=== PATIENT | male | born 1965 | race Caucasian/White ===

== ENCOUNTER 2020-07-30 10:49 | Emergency (ER) | payer OTHER ==
--- NOTE | 2020-07-30 11:34 | RAD REPORT ---
EXAM DESCRIPTION: RAD - Chest Single View - 07/30/2020 11:25 am CLINICAL HISTORY: COUGH, shortness of breath with exertion COMPARISON: Portable September 2016 TECHNIQUE: AP portable chest image was obtained 07/30/2020 11:25 am . FINDINGS: Lungs are clear. Lung volumes are reduced compared to the prior study which accentuates sl ightly the lung interstitial pattern. Heart and vasculature are normal. No measurable pleural effusio n and no pneumothorax. No acute bony abnormality seen. No acute aortic findings suspected. IMPRESSION: No acute cardiopulmonary process. No significant change from comparison study.
[2020-07-30] MEDS ORDERED: METHYLPREDNISOLONE 125 MG INJ ONE (11:48)
[2020-07-30 11:54] LABS: Basophils % 0.8 % (0-1.3); Hematocrit 47.3 % (39.6-49.0); Lymphocytes % 8.7 % (15.3-44.8); MPV 9.5 fL (7.6-11.3); RBC Red Blood Cell Count 5.94 M/uL (4.33-5.43)
[2020-07-30 12:07] LABS: Potassium 3.9 mmol/L (3.5-5.1)
--- NOTE | 2020-07-30 12:29 | ER ---
Nurse's Notes [facility] Name: Antoine Funes Age: 55 yrs Sex: Male : 1965 Arrival Date: 07/30/2020 Time: 10:51 Bed 20 Private MD: Diagnosis: Asthma;Pneumonia, unspecified organism Presentation: 07/30 11:02 Chief complaint: Patient states: Cough for 3 days. Notices SOB with exertion. No fever. ll1 Sent for CXR by clinic physician. Coronavirus screen: Client denies travel out of the [place] in the last 14 days. congestion, cough unrelated to allergies, Client presents with at least one sign or symptom that may indicate coronavirus-19. Standard/surgical mask placed on the client. Ebola Screen: Patient denies travel to an Ebola-affected area in the 21 days before illness onset. Initial Sepsis Screen: Does the patient meet any 2 criteria? HR > 90 bpm. No. Patient's initial sepsis screen is negative. Does the patient have a suspected source of infection? Yes: Productive cough/pneumonia. Risk Assessment: Do you want to hurt yourself or someone else? Patient reports no desire to harm self or others. Onset of symptoms was July 28, 2020. 11:02 Method Of Arrival: Ambulatory [facility] 11:02 Acuity: CALI 3 ll1 Triage Assessment: 11:05 General: Appears in no apparent distress. Behavior is calm, cooperative. Respiratory: ll1 Reports shortness of breath on exertion cough that is Airway is patent Trachea midline Respiratory effort is even, unlabored, Respiratory pattern is regular, symmetrical. Historical: - Allergies: 11:04 No Known Allergies; ll1 - PMHx: 11:04 Diabetes - NIDDM; High Cholesterol; Hypertension; Asthma; ll1 - PSHx: 11:04 None; ll1 - Immunization history:: Flu vaccine is up to date. - Social history:: Smoking status: Patient denies any tobacco usage or history of. - Family history:: not pertinent. - Hospitalizations: : No recent hospitalization is reported. Screenin:04 Abuse screen: Denies threats or abuse. Nutritional screening: No deficits noted. ll1 Tuberculosis screening: No symptoms or risk factors identified. Fall Risk IV access (20 points). Total Maynard Fall Scale indicates No Risk (0-24 pts). Assessment: 11:05 Pain: Denies pain. Neuro: No deficits noted. Cardiovascular: No deficits noted. Rhythm ll1 is sinus tachycardia. Respiratory: Airway is patent Trachea midline Respiratory effort is even, unlabored, Respiratory pattern is regular, symmetrical, Sputum is thick, clear Onset: The symptoms/episode began/occurred 3 days ago, the patient has mild shortness of breath. GI: No deficits noted. 12:10 Reassessment: Patient appears in no apparent distress at this time. No changes from jl7 previously documented assessment. Patient and/or family updated on plan of care and expected duration. Pain level reassessed. Patient is alert, oriented x 3, equal unlabored respirations, skin warm/dry/pink. Respiratory: Breath sounds with wheezes in left posterior lower lobe. 12:35 Reassessment: No changes from previously documented assessment. Patient and/or family ll1 updated on plan of care and expected duration. Pain level reassessed. Vital Signs: 11:02 BP 206 / 92; Pulse 96; Resp 18; Temp 98.7; Pulse Ox 92% on R/A; Weight 105.23 kg; ll1 Height 5 ft. 10 in. (177.80 cm); Pain 0/10; 11:30 BP 142 / 99; Pulse 99; Resp 19; Pulse Ox 93% ; jl7 12:39 BP 154 / 92; Pulse 84; Resp 18; Pulse Ox 94% on R/A; Pain 0/10; ll1 11:02 Body Mass Index 33.29 (105.23 kg, 177.80 cm) ll1 ED Course: 10:35 Inserted saline lock: 20 gauge in left antecubital area, using aseptic technique. Blood ll1 collected. 10:51 Patient arrived in ED. rg4 10:55 Oumar Jane MD is Attending Physician. rn 11:02 Mauri Johnson, RN is Primary Nurse. ll1 11:04 Triage completed. ll1 11:04 Arm band placed on Patient placed in an exam room, on a stretcher. ll1 11:25 XRAY CXR (1 view) In Process Unspecified. EDMS 12:09 Primary Nurse role handed off by Mauri Johnson, RN jl7 12:09 Shellie Leahy, YANELI is Primary Nurse. jl7 12:09 Patient has correct armband on for positive identification. Bed in low position. Call ll1 light in reach. Side rails up X 1. Pulse ox on. NIBP on. 12:39 No provider procedures requiring assistance completed. IV discontinued, intact, ll1 bleeding controlled, No redness/swelling at site. Pressure dressing applied. Patient maintains SpO2 saturation greater than 95% on room air. Administered Medications: 11:42 Drug: SOLU-Medrol 125 mg Route: IVP; Site: left antecubital; jl7 12:40 Follow up: Response: No adverse reaction; RASS: Alert and Calm (0) ll1 Outcome: 12:29 Discharge ordered by . rn 12:39 Discharged to home ambulatory. ll1 12:39 Condition: stable 12:39 Discharge instructions given to patient, Instructed on discharge instructions, follow up and referral plans. medication usage, Demonstrated understanding of instructions, follow-up care, medications, Prescriptions given X 3. 12:41 Patient left the ED. ll1 Addendum: 08/01/2020 10:37 Addendum: COVID-19 Result: Negative result given to RN to notify pt. Notified pt of i w negative COVID 19 swab results. Pt advised that even with a negative test result they should remain in isolation until symptom free for 3 days without medication. Pt also advised to return to the ED for worsening symptoms. Signatures: Dispatcher [employer] EDMS Jayla Whitney, RN Oumar Díaz MD MD rn Garcia, Rubi rg4 Shellie Leahy RN RN jl7 Mauri Johnson RN RN ll1
--- NOTE | 2020-07-30 12:29 | EDPHYS ---
Physician Documentation [facility] Name: Antoine Funes Age: 55 yrs Sex: Male : 1965 Arrival Date: 07/30/2020 Time: 10:51 Bed 20 Private MD: ED Physician Oumar Jane HPI: 07/30 11:12 This 55 yrs old Male presents to ER via Ambulatory with complaints of rn Shortness Of Breath, Cough. 11:12 The patient has shortness of breath with light activity. Onset: The symptoms/episode rn began/occurred 3 day(s) ago. Duration: The symptoms are intermittent. The patient's shortness of breath is aggravated by exertion, light activity, is alleviated by nothing. Severity of symptoms: At their worst the symptoms were moderate. The patient has not experienced similar symptoms in the past. The patient has been recently seen by a physician:. Reports seen today at clinic, xray obtained, showed pneumonia, sent here for further evaluation. Reports hx of asthma, mild sob with exertion, + productive cough.. Historical: - Allergies: 11:04 No Known Allergies; ll1 - PMHx: 11:04 Diabetes - NIDDM; High Cholesterol; Hypertension; Asthma; ll1 - PSHx: 11:04 None; ll1 - Immunization history:: Flu vaccine is up to date. - Social history:: Smoking status: Patient denies any tobacco usage or history of. - Family history:: not pertinent. - Hospitalizations: : No recent hospitalization is reported. ROS: 11:12 Constitutional: Negative for fever, chills, and weight loss, Eyes: Negative for injury, rn pain, redness, and discharge, Neck: Negative for injury, pain, and swelling, Cardiovascular: Negative for chest pain, palpitations, and edema, Respiratory: Negative for wheezing, and pleuritic chest pain Abdomen/GI: Negative for abdominal pain, nausea, vomiting, diarrhea, and constipation, MS/Extremity: Negative for injury and deformity, Skin: Negative for injury, rash, and discoloration, Neuro: Negative for headache, weakness, numbness, tingling, and seizure. Exam: 11:12 Constitutional: This is a well developed, well nourished patient who is awake, alert, rn and in no acute distress. Head/Face: Normocephalic, atraumatic. ENT: no Stridor Cardiovascular: Regular rate and rhythm. No pulse deficits. Respiratory: Speaking full sentences. No increased work of breathing, no retractions or nasal flaring. Skin: Warm, dry MS/ Extremity: Pulses equal, no cyanosis. Neuro: Awake and alert, GCS 15 Vital Signs: 11:02 BP 206 / 92; Pulse 96; Resp 18; Temp 98.7; Pulse Ox 92% on R/A; Weight 105.23 kg; ll1 Height 5 ft. 10 in. (177.80 cm); Pain 0/10; 11:30 BP 142 / 99; Pulse 99; Resp 19; Pulse Ox 93% ; jl7 12:39 BP 154 / 92; Pulse 84; Resp 18; Pulse Ox 94% on R/A; Pain 0/10; ll1 11:02 Body Mass Index 33.29 (105.23 kg, 177.80 cm) ll1 MDM: 10:55 Patient medically screened. rn 12:26 Differential diagnosis: Bronchitis pneumonia, Pneumothorax pulmonary edema. Data rn reviewed: vital signs, nurses notes, lab test result(s), radiologic studies, plain films, and as a result, I will discharge patient. Counseling: I had a detailed discussion with the patient and/or guardian regarding: the historical points, exam findings, and any diagnostic results supporting the discharge/admit diagnosis, lab results, radiology results, the need for outpatient follow up, to return to the emergency department if symptoms worsen or persist or if there are any questions or concerns that arise at home. Special discussion: I discussed with the patient/guardian in detail that at this point there is no indication for admission to the hospital. It is understood, however, that if the symptoms persist or worsen the patient needs to return immediately for re-evaluation. ED course: CXR without pneumonia here, CXR at outside facility read pneumonia, neg flu, oxygen a little low, + asthma, will dc home with abx, steroids, and to await covid result. . 07/30 11:03 Order name: Blood Culture Adult (2) rn 07/30 11:03 Order name: BMP; Complete Time: 12:25 rn 07/30 11:03 Order name: CBC with Diff; Complete Time: 12:25 rn 07/30 11:03 Order name: COVID-19 rn 07/30 11:03 Order name: Flu; Complete Time: 12:25 rn 07/30 11:04 Order name: Procalcitonin rn 07/30 11:03 Order name: XRAY CXR (1 view); Complete Time: 11:35 rn 07/30 11:03 Order name: EKG; Complete Time: 11: rn 07/30 11:03 Order name: Cardiac monitoring; Complete Time: 12: rn 07/30 11:03 Order name: EKG - Nurse/Tech; Complete Time: 12: rn 07/30 11:03 Order name: IV Saline Lock; Complete Time: 11: rn 07/30 11:03 Order name: Labs collected and sent; Complete Time: : rn 07/30 11:04 Order name: Ferritin; Complete Time: : rn 07/30 11:03 Order name: O2 Per Protocol; Complete Time: : rn 07/30 11:03 Order name: O2 Sat Monitoring; Complete Time: 11: rn Administered Medications: 11:42 Drug: SOLU-Medrol 125 mg Route: IVP; Site: left antecubital; jl7 12:40 Follow up: Response: No adverse reaction; RASS: Alert and Calm (0) ll1 Disposition: 07/30/20 12:29 Discharged to Home. Impression: Asthma, Pneumonia, unspecified organism. - Condition is Stable. - Discharge Instructions: Community-Acquired Pneumonia, Adult, Asthma, Acute Bronchospasm. - Prescriptions for Prednisone 20 mg Oral Tablet - take 3 tablet by ORAL route once daily for 5 days; 15 tablet. Zithromax Z- Eugenio 250 mg Oral Tablet - take 1 tablet by ORAL route as directed for 5 days Day 1 - take two (2) tablets one time. Day 2, 3, 4 , 5 take one (1) tablet once daily.; 6 tablet. Albuterol Sulfate 90 mcg/actuation - inhale 1-2 puff by INHALATION route every 4-6 hours; 1 Inhaler. - Medication Reconciliation Form, Thank You Letter, Antibiotic Education, Prescription Opioid Use form. - Follow up: Private Physician; When: As needed; Reason: Recheck today's complaints, Re-evaluation by your physician. - Problem is new. - Symptoms have improved. Signatures: Dispatcher [employer] EDMS Oumar Jane MD MD rn Leal, Jahala, RN RN jl7 Mauri Johnson RN RN ll1 Corrections: (The following items were deleted from the chart) 12:41 12:29 07/30/2020 12:29 Discharged to Home. Impression: Asthma; Pneumonia, unspecified ll1 organism. Condition is Stable. Forms are Medication Reconciliation Form, Thank You Letter, Antibiotic Education, Prescription Opioid Use. Follow up: Private Physician; When: As needed; Reason: Recheck today's complaints, Re-evaluation by your physician. Problem is new. Symptoms have improved. rn
[2020-07-30 12:45] VITALS: TEMP 98.7
[2020-07-30 12:48] VITALS: BP 154/92; O2SAT 94
--- NOTE | 2020-08-02 16:18 | EKG ---
Test Date: 2020-07-30 Test Time: 12:00:09 Entry Level Automotive Technician: KATHREINE MEASUREMENT RESULTS: Intervals: Rate: 91 WA: 126 QRSD: 84 QT: 350 QTc: 430 [place]: P: -5 WA: 126 QRS: -24 T: -39 INTERPRETIVE STATEMENTS: Normal sinus rhythm Minimal voltage criteria for LVH, may be normal variant Nonspecific ST and T wave abnormality Abnormal ECG Compared to ECG 10/30/2016 03:32:22 Left ventricular hypertrophy now present ST (T wave) deviation now present Electronically Signed On 08-02-20 16:10:22 INSPECTOR SOLDERING by Mustapha Garza
== END 2020-07-30 12:41 | disposition home or self-care (01) ==
LOC: ER 10:49
DX: J18.9 Pneumonia, unspecified organism (principal); Z20.828 Contact with and (suspected) exposure to other viral communicable diseases; J45.909 Unspecified asthma, uncomplicated; I10 Essential (primary) hypertension
CPT/HCPCS: 93005; 87040 ×2; 85025; 80048; 36415; 82728; 84145; 87804 ×2; 71045; 96374; 99285; U0002; J2930

== ENCOUNTER 2022-03-17 07:14 | Day surgery (SDC) | payer BC, SELFPAY ==
[2022-03-12 15:46] LABS: SARS-CoV-2 Antigen Rapid Res Negative (Negative)
[2022-03-17] MEDS ORDERED: NA CHLORIDE 0.9% 1,000 ML ONE (07:35)
[2022-03-17] MEDS ORDERED: LIDOCAINE 1% MPF 5 ML VIAL ONE (08:53)
[2022-03-17] MEDS ORDERED: propofoL 200 MG/20 ML VIAL IV ONE (08:53)
[2022-03-17 11:43] VITALS: TEMP 97.2
[2022-03-17 11:44] VITALS: BP 133/70
[2022-03-17 11:48] VITALS: O2SAT 99
--- NOTE | 2022-03-17 16:10 | OP ---
Surgeon: Donavon White MD Procedure Performed: Esophagogastroduodenoscopy. Indication For Procedures: Colon cancer screening. Plan For Anesthesia: Monitored anesthesia care. Complexity: Average. Technique: After obtaining informed consent from the patient, explaining risks and complications, wh ich include, but are not limited to bleeding, infection, perforation, and anesthesia complication. T he patient was placed in the left lateral position and sedation was given. From then on, a digital r ectal exam was performed, which was negative. The scope was advanced to the rectum and carefully andrés ded up till the cecum. The cecum was identified by the ileocecal valve and appendiceal orifice. Sub sequently, scope gradually withdrawn while carefully examining the mucosa. After completion of proce dure, scope and equipment were withdrawn and procedure terminated in a safe manner. Scope withdrawal time was 12 minutes. Quality of prep was good. Findings: A 4 mm sessile polyp was seen in the transverse colon and removed with hot biopsy polypect patsy. In the descending colon, patchy area of pigmented mucosa was seen. Cold biopsies taken. In th e sigmoid colon, a 6 mm sessile polyp was seen. This was removed by hot biopsy polypectomy. Retrofl exion revealed grade 1 internal hemorrhoids. Complications: None. Tolerance To Anesthesia: Excellent. Postoperative Diagnosis: Colon polyps, abnormal descending colon mucosa, status post biopsy. Plan: 1.Await pathology results. 2.Follow up in the GI clinic in 2 weeks. 3.Repeat colonoscopy in 3-5 years based on pathology. US/MODL Voice ID: [id number] Report ID: [id number]
== END 2022-03-17 09:42 | disposition home or self-care (01) ==
LOC: OR 07:14
PROVIDERS: ATTEND Internal Medicine Gastroenterology
PROC: 0DBL8ZX Excision of Transverse Colon, Via Natural or Artificial Opening Endoscopic, Diagnostic (ICD-10-PCS; 2022-03-17)
PROC: 0DBN8ZX Excision of Sigmoid Colon, Via Natural or Artificial Opening Endoscopic, Diagnostic (ICD-10-PCS; 2022-03-17)
PROC: 0DBM8ZX Excision of Descending Colon, Via Natural or Artificial Opening Endoscopic, Diagnostic (ICD-10-PCS; principal; 2022-03-17 08:30)
DX: Z12.11 Encounter for screening for malignant neoplasm of colon (principal); D12.5 Benign neoplasm of sigmoid colon; R10.10 Upper abdominal pain, unspecified; K21.9 Gastro-esophageal reflux disease without esophagitis; E11.9 Type 2 diabetes mellitus without complications; I10 Essential (primary) hypertension; E66.9 Obesity, unspecified; E78.00 Pure hypercholesterolemia, unspecified; K30 Functional dyspepsia; K64.8 Other hemorrhoids; Z20.822 Contact with and (suspected) exposure to COVID-19
CPT/HCPCS: 36415; 82947; 88305; 87811; 45384; 45380; J2704; J7030

== ENCOUNTER 2022-03-25 13:29 | Observation (INO) | payer BC ==
--- OUTSIDE RECORDS SUMMARY | 2022-03-25 13:42 | XMS REPORT | Continuity of Care Document ---
:1965 Author Organization [facility] t Address [address] [place] [address] [address]. Hern[address]dez [address] [place] [address] Care Team Providers Name Role Phone Javon Stone Attending Clinician Unavailable Problems This patient has no known problems. Allergies, Adverse Reactions, Alerts This patient has no known allergies or adverse reactions. Medications This patient has no known medications. Procedures This patient has no known procedures. Encounters Start End Encounter Admission Attending Care Care Encounter Source Date/Time Date/Time Type Type Clinicians Facility Department ID 2022-03-[address] [facility] [id number] Common 09:25:03 Javon [address] [facility] 2022-03-[address] [facility] [id number] Common 13:44:02 Javon [facility] Results This patient has no known results.
[2022-03-25 14:52] VITALS: BMI 32.0
[2022-03-25 16:40] LABS: Urine Bilirubin Negative (Negative); Urine Blood Negative (Negative); Urine Clarity Clear (Clear); Urine Color Yellow (Yellow); Urine Glucose 3+ (Negative); Urine Protein Negative (Negative)
--- NOTE | 2022-03-25 17:58 | P.HP ---
Certification for Inpatient Patient admitted to: Inpatient With expected LOS: >2 Midnights Practitioner: I am a practitioner with admitting privileges, knowledge of patient current condition, hospital course, and medical plan of care. Services: Services provided to patient in accordance with Admission requirements found in Title 42 Section 412.3 of the Code of Federal Regulations Patient History Date of Service: 03/25/22 Reason for admission: FOOT INFECTION. History of Present Illness: SALEEM IS A DIABETIC WHOSE DIET IS NOT THE BEST AND A1C HAS BEEN BETWEEN 7 AND 8. HE HAS SOME COWS. COW STEPPED ON HIS TOE AND GOT INFECTION. HE CAME TO [facility]OUND CENTER BUT I SUGGESTED INPATIENT DEBRIDMENT TOE HAS THE NAIL COMING OFF AND HAS PUS BENEATH. MRI PENDING. Allergies shrimp Allergy (Verified 03/12/22 13:00) Itching Home medications list reviewed: Yes Home Medications: Amlodipine Besylate 5 mg PO DAILY 03/12/22 Dulaglutide [Trulicity] 4.5 mg SQ EVERY 7TH DAY 03/12/22 Empagliflozin/Metformin HCl [Synjardy Xr 25-1,000 mg Tablet] 1 each PO DAILY 03/12/22 Insulin Glargine,Hum.rec.anlog [Toujeo Solostar] 120 unit SQ DAILY 03/12/22 Losartan/Hydrochlorothiazide [Losartan-Hctz 100-12.5 mg Tab] 1 each PO DAILY 03/12/22 Rosuvastatin [Crestor] 10 mg PO DAILY 03/12/22 Pantoprazole [Protonix Tab*] 40 mg PO [id number] 03/25/22 - Past Medical/Surgical History Has patient received pneumonia vaccine in the past: No Diabetic: Yes -: colonoscopy -: DM -: HTN - Social History Smoking Status: Never smoker Alcohol use: Yes CD- Drugs: No Place of Residence: Home Review of Systems 10-point ROS is otherwise unremarkable Physical Examination - Vital Signs Temperature: 98.5 F Blood Pressure: 142/70 Pulse: 59 Respirations: 16 Pulse Ox (%): 98 - Physical Exam General: Oriented x3, Mild distress HEENT: Atraumatic, PERRLA, Mucous membr. moist/pink, EOMI, Sclerae nonicteric Neck: Supple, 2+ carotid pulse no bruit, No LAD, Without JVD or thyroid abnormality Respiratory: Clear to auscultation bilaterally, Normal air movement Cardiovascular: Regular rate/rhythm, Normal S1 S2 Gastrointestinal: Normal bowel sounds, No tenderness Musculoskeletal: No tenderness Integumentary: No rashes, Diabetic ulcer (L GREAT TOE CELLULITIS, RULE OUT PREG ANGRENE, RULE OUT OM. PUS BENEATH THE NAIL.) Neurological: Normal gait, Normal speech, Normal strength at 5/5 x4 extr, Normal tone, Normal affect Lymphatics: No axilla or inguinal lymphadenopathy Assessment and Plan - Problems (Diagnosis) (1) Diabetic ulcer of left great toe Current Visit: No Status: Acute Plan: IV VANCOMYCIN. DEBRIDE MRI TOE DURATION OF ANTIBIOTIC WILL DEPEND ON MRI. R TOE HAS MILD INFECTION THAT IS ALREADY BETTER ON BACTRIM I GAVE HIM LAST WEEK. DOPPLER BOTH LEGS. CHECK A1C. - Advance Directives Does patient have a Living Will: No Does patient have a Durable POA for Healthcare: No
[2022-03-26 02:40] VITALS: O2SAT 97
[2022-03-26] MEDS ORDERED: PANTOPRAZOLE 40MG TABLET PO SCH (06:00)
[2022-03-26] MEDS ORDERED: ONDANSETRON 4 MG/2 ML VIAL IV PRN (07:34)
[2022-03-26] MEDS ORDERED: HYDROMORPHONE HCL 1 MG/ML INJ IV PRN (07:34)
[2022-03-26] MEDS ORDERED: KETOROLAC 30 MG/ML INJ IV PRN (07:35)
[2022-03-26] MEDS ORDERED: DIPHENHYDRAMINE 25 MG TAB/CAP PO PRN (07:36)
[2022-03-26] MEDS ORDERED: ACETAMINOPHEN 325 MG TABLET PO PRN (07:37)
--- NOTE | 2022-03-26 07:51 | RAD REPORT ---
EXAM DESCRIPTION: US - Lower Extremity Arterial Bilat - 03/26/2022 5:21 am CLINICAL HISTORY: PVD COMPARISON: None. TECHNIQUE: Doppler evaluation of the bilateral lower extremity arterial tree performed. Waveforms an d velocity values were obtained along the length of each lower extremity. Visual inspection of the lo wer extremity arterial tree performed. FINDINGS: Triphasic waveform observed along the entire length of the right lower extremity. The left common femoral artery waveform pattern was biphasic with the remaining left lower extremity arterial tree demonstrating triphasic waveforms. Atherosclerotic changes are seen along the rivas of the bilateral lower extremity arterial tree. Ther e is no occlusion or focal flow restricting lesion identified. No suspicious velocity value or wavefo rm pattern. IMPRESSION: Mild bilateral lower extremity peripheral vascular disease. No occlusion or focal flow r estricting lesion identified.
[2022-03-26 08:21] LABS: Potassium 4.1 mmol/L (3.5-5.1)
[2022-03-26] MEDS ORDERED: VANCOMYCIN 2 GM in NA CHLORIDE 0.9% 500 ML IVPB ONE (08:30)
[2022-03-26] MEDS ORDERED: HOME MED 1 EA UNK (Insulin Glargine,Hum.Rec.Anlog [Toujeo Solostar] 300 UNIT/ML Insuln.Pen SQ SCH (09:00)
[2022-03-26] MEDS ORDERED: EMPAGLIFLOZIN PO SCH (09:00)
[2022-03-26] MEDS ORDERED: [UNRECOGNIZED DRUG - OTHER] PO SCH (09:00)
[2022-03-26] MEDS ORDERED: METFORMIN HCL PO SCH (09:00)
[2022-03-26] MEDS ORDERED: ROSUVASTATIN 10 MG TAB PO SCH (09:00)
[2022-03-26] MEDS ORDERED: LOSARTAN/HCTZ 50-12.5 PO SCH (09:00)
[2022-03-26] MEDS ORDERED: INSULIN GLARGINE 100 UNIT/ML SQ SCH (09:00)
[2022-03-26] MEDS ORDERED: LOSARTAN POTASSIUM 50 MG TABLET PO SCH (09:00)
[2022-03-26] MEDS ORDERED: AMLODIPINE 5 MG TAB PO SCH (09:00)
[2022-03-26] MEDS ORDERED: HOME MED 1 EA UNK (Losartan/Hydrochlorothiazide [Losartan-Hctz 100-12.5 Mg Tab] 1 EACH Tab PO SCH (09:00)
[2022-03-26] MEDS ORDERED: D50W 25 GM/50 ML SYRINGE IV PRN (11:15)
[2022-03-26] MEDS ORDERED: GLUCAGON 1 MG/VIAL IM PRN (11:15)
[2022-03-26] MEDS ORDERED: DEXTROSE 10%-WATER 125 ML IV PRN (11:20)
[2022-03-26] MEDS ORDERED: INSULIN -REGULAR HUMAN 50 UNIT/0.5 ML ML SQ SCH (11:30)
--- NOTE | 2022-03-26 12:50 | RAD REPORT ---
EXAM DESCRIPTION: MRI - Foot Left Wo Cont - 03/26/2022 12:39 pm CLINICAL HISTORY: Foot pain and swelling COMPARISON: None TECHNIQUE: Axial, sagittal and coronal magnetic resonance imaging left foot FINDINGS: No significant abnormal signal within the bones. No large joint effusion. No abscess Significant edema within the subcutaneous tissues is not present. IMPRESSION: No evidence of osteomyelitis
[2022-03-26 12:51] VITALS: BP 133/63; TEMP 97.9
--- NOTE | 2022-03-26 16:54 | P.DS ---
Admission Date: 03/25/22 Discharge Date: 03/26/22 Disposition: DC HOME/HOME HEALTH CARE Reason for Admission: FOOT INFECTION. - Problems (1) Diabetic ulcer of left great toe Status: Acute Brief History of Present Illness: SALEEM IS A DIABETIC WHOSE DIET IS NOT THE BEST AND A1C HAS BEEN BETWEEN 7 AND 8. HE HAS SOME COWS. COW STEPPED ON HIS TOE AND GOT INFECTION. HE CAME TO WOUND CENTER BUT I SUGGESTED INPATIENT DEBRIDMENT TOE HAS THE NAIL COMING OFF AND HAS PUS BENEATH. MRI PENDING. Hospital Course: SALEEM HAS DIABETES AND HIS COW STEPPED ON HIS TOE, NAIL ALMOST CAME OFF, HEHAS CELLULITIS AND NEED IV ABX, MRI AND DEBRIEMENT. ALL WERE CARRIED OUT TODAY. HE IS STABLE FOR HOME. HE HAS ORAL ABX HE WILL CONTINUE. MRI IS NEG FOR OM AND HE HAS MILD PVD ON SONOGRAM. Vital Signs/Physical Exam: Temp Pulse Resp BP Pulse Ox 97.9 F 57 18 133/63 97 03/26/22 12:00 03/26/22 12:00 03/26/22 12:00 03/26/22 12:00 03/26/22 12:00 Laboratory Data at Discharge: Sodium 139 mmol/L (136-145) 03/26/22 08:00 Potassium 4.1 mmol/L (3.5-5.1) 03/26/22 08:00 BUN 22 mg/dL (7-18) H 03/26/22 08:00 Creatinine 1.07 mg/dL (0.55-1.3) 03/26/22 08:00 Glucose 99 mg/dL (74-106) 03/26/22 08:00 Home Medications: Amlodipine Besylate 5 mg PO DAILY 03/12/22 Dulaglutide [Trulicity] 4.5 mg SQ EVERY 7TH DAY 03/12/22 Empagliflozin/Metformin HCl [Synjardy Xr 25-1,000 mg Tablet] 1 each PO DAILY 03/12/22 Insulin Glargine,Hum.rec.anlog [Vish Reed] 120 unit SQ DAILY 03/12/22 Losartan/Hydrochlorothiazide [Losartan-Hctz 100-12.5 mg Tab] 1 each PO DAILY 03/12/22 Rosuvastatin [Crestor] 10 mg PO DAILY 03/12/22 Pantoprazole [Protonix Tab*] 40 mg PO [id number] 03/25/22
--- NOTE | 2022-03-26 19:08 | CON ---
Date of Consultation: 03/26/2022 Reason For Consultation: Infected left great toe. History Of Present Illness: The patient is a 57-year-old gentleman, who sustained an injury to the l eft great toe when a cow stepped on his foot while he was wearing sneakers and then he had a toenail that was loose and he came to see Dr. Stone [facility], but the patient is a diabetic and th ere was cellulitis present already and the patient needed debridement and needed to be ruled out for osteomyelitis. The patient states that he has neuropathy. There is not much pain. No fever or chil ls. No sore throat, runny nose, cough, headaches, or dizziness. No chest pain. Review of Systems: Otherwise unremarkable. Past Medical History: Diabetes, hypertension. Past Surgical History: Colonoscopy. Allergies: NO ALLERGIES. Social History: The patient does not smoke and does not drink. Family History: Noncontributory. Physical Examination: Vital Signs: Stable. He is afebrile. General: He is awake, alert, and oriented x3. Head and Neck: No masses. Chest: Clear. Heart: S1, S2. Abdomen: Soft. Extremity: Neurovascularly intact. Neuro: Nonfocal. Lower extremities, dorsalis pedis and posterior tibial are slightly diminished. O n the left great toe, the nail is coming off. There was pus underneath it. There is surrounding jeronimo thema, but appears to be improving. There is a partial-thickness wound on the tip of the toe, which is healing well. Neurologically, he is nonfocal. No axillary or inguinal lymphadenopathy appreciate d. Laboratory Data: Reviewed. MRI is pending. Procedure Note: Under clean condition, cultures done on the pus that was coming from the wound. Jaz l was grasped and was almost completely off by itself and it was gently pulled and it came out, and w ound was cleaned with gauze and saline and then central dressing was applied. Assessment: Left great toe infected wound, rule out osteomyelitis. Recommendations: Optimization, IV antibiotics, check cultures and adjust antibiotics. If the MRI is positive, the patient will need 6 weeks IV antibiotics for osteo. If it is negative, then the patie nt will be discharged home on oral antibiotics. Plan of care and wound care discussed in detail with Dr. Stone and the patient. /MODL Voice ID: [id number] Report ID: [id number]
[2022-03-27] MEDS ORDERED: VANCOMYCIN 1.75 GM in NA CHLORIDE 0.9% 500 ML IVPB SCH (03:00)
[2022-03-27] MEDS ORDERED: COLLAGENASE 30 GM OINTMENT TOP SCH (09:00)
[2022-04-01] MEDS ORDERED: DULAGLUTIDE 4.5 MG/0.5 ML SQ SCH (09:00)
== END 2022-03-26 16:24 | disposition home or self-care (01) ==
LOC: 2ND 13:29 → INTOOBSV 13:29
PROVIDERS: ADMIT Internal Medicine; ATTEND Internal Medicine
PROC: 0HBRXZZ Excision of Toe Nail, External Approach (ICD-10-PCS; principal; 2022-03-26)
DX: E11.621 Type 2 diabetes mellitus with foot ulcer (principal); L97.529 Non-pressure chronic ulcer of other part of left foot with unspecified severity; S91.202A Unspecified open wound of left great toe with damage to nail, initial encounter; L03.032 Cellulitis of left toe; W55.29XA Other contact with cow, initial encounter
CPT/HCPCS: 87070; 80048; 36415; 87205; 82947 ×4; 87077; 87186; 81003; 93925; 73718; 99251; 11720; U0003; J3370; J7040; G0379; G0378 ×2

== ENCOUNTER 2022-03-31 07:27 | Day surgery (SDC) | payer SELFPAY ==
[2022-03-31] MEDS ORDERED: NA CHLORIDE 0.9% 1,000 ML ONE (07:57)
[2022-03-31] MEDS ORDERED: propofoL 200 MG/20 ML VIAL IV ONE (08:44)
[2022-03-31] MEDS ORDERED: LIDOCAINE 1% MPF 5 ML VIAL ONE (08:44)
[2022-03-31 09:25] VITALS: BP 126/57; TEMP 98; O2SAT 100
--- NOTE | 2022-03-31 09:29 | OP ---
Surgeon: Donavon White MD Procedure Performed: Esophagogastroduodenoscopy. Indication For Procedure: Longstanding GERD. Anesthesia: Monitored anesthesia care. Complexity: Average. Technique: After obtaining informed consent from the patient, explaining risks and complications whi ch include, but are not limited to bleeding, infection, perforation, and anesthesia complication, pat ient was placed in the left lateral position and sedation was given. From then on, the scope was adv anced to the mouth and carefully guided up till the second portion of the duodenum. After the comple tion of examination, scope and equipment were withdrawn and procedure terminated in a safe manner. Findings: Esophagus: No gross lesion seen in the upper and mid esophagus. In the distal esophagus, the Z-line was irregular. Biopsies taken. Stomach: Mild patchy erythema seen in the body and antrum. Biopsies taken. Duodenum: The bulb and second portion appeared normal. Complications: None. Tolerance To Anesthesia: Excellent. Estimated Blood Loss: Minimal. Postoperative Diagnoses: 1.Irregular Z-line. 2.Gastritis. Plan: 1.Await pathology results. 2.Continue PPI. 3.Follow up in the GI clinic in 2 weeks. US/MODL Voice ID: [id number] Report ID: [id number]
== END 2022-03-31 09:27 | disposition home or self-care (01) ==
LOC: OR 07:27
PROVIDERS: ATTEND Internal Medicine Gastroenterology
PROC: 0DB68ZX Excision of Stomach, Via Natural or Artificial Opening Endoscopic, Diagnostic (ICD-10-PCS; 2022-03-31)
PROC: 0DB38ZX Excision of Lower Esophagus, Via Natural or Artificial Opening Endoscopic, Diagnostic (ICD-10-PCS; principal; 2022-03-31 08:30)
DX: K29.50 Unspecified chronic gastritis without bleeding (principal); B96.81 Helicobacter pylori [H. pylori] as the cause of diseases classified elsewhere
CPT/HCPCS: 82947; 88305; 88312; J2704; J7030

== ENCOUNTER 2025-05-01 02:34 | Emergency (ER) | payer BC, OTHER ==
--- OUTSIDE RECORDS SUMMARY | 2025-05-01 02:40 | XMS REPORT | Continuity of Care Document ---
Author Name Unknown Address [address] [facility] [address] [place] Address [address] [facility] 1 [address] [place] [address] Care Team Providers Care Compressor Station Chief Engineer Name Role Phone Javon Stone Attending Clinician Unavailable SHADI SALOMON Attending Clinician Unavailable MARIANNA ATTUM Attending Clinician Unavailable ALEXANDRA OSULLIVAN Attending Clinician Unavaila ble [id number] Attending Clinician Unavailable STEVE MOCTEZUMA Attending Clinician Unavailable TOMOGRAPHY, [facility] Attending Cl inician Unavailable LAB90 Attending Clinician Unavailable 1, [facility] TOMOGRAPHY Attending Clinic ubaldo Unavailable DANNY VARGAS Attending Clinician Unavailable MARIEL POSEY Attending Clinician Unavailable ANITA VARGAS Attending Clinician Unahaven ilable Payers Payer Name Policy Type Policy Number Effective Date Expirati on Date Source [facility] 4 ADVANCED 9 [id number] 2024 00:00:00 Problems Condition Name Condition Details Condition Category Status Onset Date Resolution Date Last Treatment Date Treating Clinician Comments Source Primary osteoarthr itis of both shoulders Primary osteoarthr itis of both shoulders Disease Active 02-07 00:00: 00 Brenda martinez DM type 2 with diabetic mixed hyperlipid emia (multi HCC) DM type 2 with diabetic mixed hyperlipid emia (multi HCC) Disease Active 03-27 00:00: 00 Brenda Shoemakera juan Diabetic polyneurop athy associated with type 2 diabetes mellitus (multi HCC) Diabetic polyneurop athy associated with type 2 diabetes mellitus (multi HCC) Disease Active 03-27 00:00: 00 Brenda Seybold - Externa l Chronic pain of both shoulders Chronic pain of both shoulders Disease Active 03-21 00:00: 00 Brenda Seybold - Externa l Class 1 obesity due to excess calories with serious comorbidit y and body mass index (BMI) of 31.0 to 31.9 in adult Class 1 obesity due to excess calories with serious comorbidit y and body mass index (BMI) of 31.0 to 31.9 in adult Disease Active 03-21 00:00: 00 Brenda Seybold - Externa l Type 2 diabetes mellitus with diabetic microalbum inuria, with long-term current use of insulin (multi HCC) Type 2 diabetes mellitus with diabetic microalbum inuria, with long-term current use of insulin (multi HCC) Disease Active 12-19 00:00: 00 Brenda Seybold - Externa l Well adult exam Well adult exam Disease Active 12-19 00:00: 00 Brenda Seybold - Externa l Diabetic retinopath y of both eyes associated with type 2 diabetes mellitus (multi HCC) Diabetic retinopath y of both eyes associated with type 2 diabetes mellitus (multi HCC) Disease Active 10-31 00:00: 00 Brenda Seybold - Externa l Immunodefi ciency due to poorly controlled type 2 diabetes (multi HCC) Immunodefi ciency due to poorly controlled type 2 diabetes (multi HCC) Disease Active 10-31 00:00: 00 Brenda Seybold - Externa l HTN (hypertens ion) HTN (hypertens ion) Disease Active Brenda Seybold - Externa l Allergies, Adverse Reactions, Alerts Allergy Name Allergy Type Status Severity Reaction(s) Onset Date Inactive Date Treating Clinician Comments Source Shrimp (Diagnos tic) Propensi ty to adverse reaction s Active 03-31 00:00: 00 Other Reaction( s): Itching Brenda Laureanoold - Externa l Social History Social Habit Start Date Stop Date Quantity Comments Source Sexual orientation Marilyn partida Jimmie - External History of Occupation Brenda Samuel - External History of tobacco use Snuff User Brenda Samuel - External Alcoholic beverage intake 2025-02-07 00:00:00 2025-02-07 00:00:00 .29 /d Brenda Samuel - External History of Social function 2023-12-20 00:00:00 2023-12-20 00:00:00 Brenda Samuel - External Education 2023-12-20 00:00:00 2023-12-20 00:00:00 17 Brenda Samuel - External Alcohol Comment 2023-12-20 00:00:00 2023-12-20 00:00:00 seldomly Brenda Samuel - External Tobacco use and exposure 2023-11-01 00:00:00 2023-11-01 00:00:00 User of smokeless tobacco Brenda Samuel - External Alcohol intake 2023-11-01 00:00:00 2023-11-01 00:00:00 .29 /d Brenda Samuel - External Sex 2023-05-06 17:52:10 2023-05-06 17:52:10 Male (finding) Brenda Samuel - External Sex assigned at 1965 00:00:00 1965 00:00:00 Brenda Samuel - External Smoking Status Start Date Stop Date Source Never smoked tobacco Brenda Samuel - External Medications Ordered Medication Name Filled Medication Name Start Date Stop Date Current Medication? Ordering Clinician Indication Dosage Frequency Signature (SIG) Comments Components Source Insulin Glargine (Basaglar KwikPen) 100 UNIT/ML subcutaneou s Solution Pen-injecto r 02-07 00:00: 00 Yes [id number] 80U QD Inject 80 units into the skin daily (with breakfast) . Brenda martinez Empaglifloz in-metFORMI N HCl (Synjardy) 12.5-1000 MG oral Tablet 01-04 00:00: 00 Yes [id number] 1{tbl} Q.5D Take 1 tablet by mouth 2 times daily take with meals. Brenda martinez Losartan Potassium-H CTZ 100-25 MG oral Tablet 12-26 00:00: 00 Yes [id number] 1{tbl} QD TAKE 1 TABLET BY MOUTH EVERY DAY Brenda martinez Rosuvastati n Calcium 10 MG oral Tablet 12-26 00:00: 00 Yes [id number] 3 10mg QD TAKE 1 TABLET BY MOUTH EVERY DAY AT NIGHT Brenda martinez Tizanidine HCl 2 MG oral Tablet 11-08 00:00: 00 Yes [id number] 2mg QD Take 1 tablet (2 mg total) by mouth nightly as needed. Brenda martinez Ibuprofen (MOTRIN) 600 MG oral Tablet 11-08 00:00: 00 Yes [id number] 600mg Q.5D Take 1 tablet (600 mg total) by mouth 2 times daily as needed for pain. Brenda martinez Insulin Glargine (Basaglar KwikPen) 100 UNIT/ML subcutaneou s Solution Pen-injecto r 11-08 00:00: 00 02-07 00:00 :00 No [id number] 43U Q.5D Inject 43 units into the skin 2 times daily. Brenda martinez Diclofenac Sodium 75 MG oral Tablet Delayed Response 11-08 00:00: 00 11-08 00:00 :00 No [id number] 75mg Q.5D Take 1 tablet (75 mg total) by mouth 2 times daily as needed. Brenda martinez Basaglar KwikPen 100 UNIT/ML subcutaneou s Solution Pen-injecto r 08-25 00:00: 00 Yes [id number] 9109 40U Q.5D INJECT 40 UNITS INTO THE SKIN 2 TIMES DAILY. Brenda martinez Bevacizumab (AVASTIN) infusion 100 mg/4 mL (INJ07) 2023-08 09:10: 29 No [id number] 101 1.25mg 1.25 mg, Physician Administer ed, ONCE, 1 dose, On Wed07/17/24 at 0915 Brenda martinez Dulaglutide 4.5 MG/0.5ML subcutaneou s Solution Auto-inject or 2023-08 00:00: 00 Yes [id number] 3 4.5mg Q1W Inject 4.5 mg into the skin once a week. Brenda martinez Diclofenac Sodium 75 MG oral Tablet Delayed Response 04-24 00:00: 00 11-08 00:00 :00 No [id number] TAKE 1 TABLET (75 MG TOTAL) BY MOUTH TWICE A DAY NEEDED Brenda martinez Empaglifloz in-metFORMI N HCl (Synjardy) 12.5-1000 MG oral Tablet 9-16 00:00: 00 Yes [id number] 1{tbl} Take 1 tablet by mouth in the morning and 1 tablet in the evening. Take with meals. Brenda martinez Mupirocin (BACTROBAN) 2 % apply externally Ointment 03-27 00:00: 00 02-07 00:00 :00 No [id number] 1{appli cation} Q.5D Apply 1 Applicatio n topically 2 times daily. Brenda martinez [facility]-3 Fatty Acids (Fish Oil) 1000 MG oral Capsule 03-22 00:00: 00 07-10 00:00 :00 No [id number] 3 1000mg Q.5D Take 1 capsule (1,000 mg total) by mouth 2 times daily. Brenda martinez Dulaglutide (Trulicity) 3 MG/0.5ML subcutaneou s Solution Pen-injecto r 8 00:00: 00 Yes [id number] 9109 3mg Q1W Inject 3 mg into the skin once a week. Brenda martinez Insulin Glargine (Basaglar KwikPen) 100 UNIT/ML subcutaneou s Solution Pen-injecto r 03-21 00:00: 00 Yes [id number] 9109 40U Q.5D Inject 40 units into the skin 2 times daily. Brenda martinez Dulaglutide (Trulicity) 3 MG/0.5ML subcutaneou s Solution Pen-injecto r 03-21 00:00: 00 07-10 00:00 :00 No [id number] 9109 3mg Q1W Inject 3 mg into the skin once a week. Brenda martinez Bevacizumab (AVASTIN) 100 mg/4 mL - Physician Administere d ([id number]) 02-21 13:53: 02 No [id number] 101 1.25mg 1.25 mg, Physician Administer ed, ONCE, 1 dose, On Wed02/22/24 at 1400 Brenda martinez Diclofenac Sodium 75 MG oral Tablet Delayed Response 02-15 00:00: 00 Yes [id number] TAKE 1 TABLET (75 MG TOTAL) BY MOUTH TWICE A DAY NEEDED Brenda martinez Trulicity 3 MG/0.5ML subcutaneou s Solution Pen-injecto r 01-18 00:00: 00 03-21 00:00 :00 No [id number] 3mg Q1W Inject 3 mg into the skin once a week. Brenda martinez Tizanidine HCl 2 MG oral Tablet 01-13 00:00: 00 11-08 00:00 :00 No [id number] 2mg QD TAKE 1 TABLET BY MOUTH NIGHTLY NEEDED. Brenda martinez Diclofenac Sodium 1 % apply externally Gel 01-08 00:00: 00 07-10 00:00 :00 No APPLY TO AFFECTED AREA 4 TIMES A DAY NEEDED Brenda martinez Empaglifloz in-metFORMI N HCl (Synjardy) 12.5-1000 MG oral Tablet 12-19 00:00: 00 Yes [id number] 1{tbl} Take 1 tablet by mouth in the morning and 1 tablet in the evening. Take with meals. Brenda martinez Rosuvastati n Calcium 10 MG oral Tablet 12-19 00:00: 00 Yes [id number] 3 10mg QD Take 1 tablet (10 mg total) by mouth nightly. Brenda martinez Losartan Potassium-H CTZ 100-25 MG oral Tablet 12-19 00:00: 00 Yes [id number] 1{tbl} QD Take 1 tablet by mouth daily. Brenda martinez Trulicity 1.5 MG/0.5ML subcutaneou s Solution Pen-injecto r 12-19 00:00: 00 Yes [id number] 3 1.5mg Inject 1.5 mg into the skin once a week. Brenda martinez Diclofenac Sodium 75 MG oral Tablet Delayed Response 12-19 00:00: 00 Yes [id number] 75mg Q.5D Take 1 tablet (75 mg total) by mouth 2 times daily as needed. Brenda Shoemakera l Tizanidine HCl 2 MG oral Tablet 12-19 00:00: 00 Yes [id number] 2mg QD Take 1 tablet (2 mg total) by mouth nightly as needed. Brenda martinez Insulin Glargine, 1 Unit Dial, (Toujeo SoloStar) 300 UNIT/ML subcutaneou s Solution Pen-injecto r 12-19 00:00: 00 03-21 00:00 :00 No [id number] 50 units sc every am and 80 units sc every pm. Brenda martinez Tirzepatide (Mounjaro) 7.5 MG/0.5ML subcutaneou s Solution Pen-injecto r 10-31 15:04: 17 10-31 00:00 :00 No 7.5mg Inject 0.5 mL (7.5 mg total) into the skin once a week. Brenda martinez Rosuvastati n Calcium 10 MG oral Tablet 10-31 14:43: 35 12-19 00:00 :00 No 10mg Take 1 tablet (10 mg total) by mouth daily. Brenda Shoemakera l Insulin Glargine, 1 Unit Dial, (Toujeo SoloStar) 300 UNIT/ML subcutaneou s Solution Pen-injecto r 10-31 14:43: 35 12-19 00:00 :00 No 1.5mL Inject 1.5 mL into the skin 2 times daily Up to 70 units twice daily. Brenda martinez Tirzepatide (Mounjaro) 7.5 MG/0.5ML subcutaneou s Solution Pen-injecto r 10-31 00:00: 00 12-19 00:00 :00 No [id number] 7.5mg Inject 0.5 mL (7.5 mg total) into the skin once a week. Brenda martinez Empaglifloz in-metFORMI N HCl (Synjardy) 12.5-1000 MG oral Tablet 10-31 00:00: 00 12-19 00:00 :00 No [id number] 1{tbl} Take 1 tablet by mouth in the morning and 1 tablet in the evening. Take with meals. Brenda martinez FLUTICASONE PROPIONATE, NASAL, 50 MCG/ACT nasal Suspension 08-24 00:00: 00 Yes Brenda martinez Amlodipine Besylate (NORVASC) 5 MG oral Tablet 08-24 00:00: 00 03-21 00:00 :00 No 5mg QD Take 1 tablet (5 mg total) by mouth daily. Brenda martinez Diclofenac Sodium 1 % apply externally Gel 08-24 00:00: 00 12-19 00:00 :00 No APPLY TO AFFECTED AREA 4 TIMES A DAY NEEDED Brenda martinez Losartan Potassium-H CTZ 100-25 MG oral Tablet 08-24 00:00: 00 12-19 00:00 :00 No 1{tbl} Take 1 tablet by mouth daily. Brenda martinez Immunizations Ordered Immunization Name Filled Immunization Name Date Status Comments Source Influenza, Seasonal, Injectable, Preservative Free Unknown Completed Brenda austin - External Hep A/ Hep B Combo Unknown Completed Marilyn Galvan External Td- Tetanus & Diphtheria Vaccine (age 7+ years) Unknown Completed Brenda Forde d - External Tdap- (Boostrix, Adacel) Unknown Completed Brenda Galvan External Tdap- (Boostrix, Adacel) Unknown Completed Brenda Galvan External Covid-19 Vaccine Moderna (Spikevax), Mrna-lnp, Yannick Protein, Pf Unknown Completed Brenda Pompa AFLURIA TRIVALENT PF(0.5mL) Unknown Completed Brenda Galvan External Hep A/ Hep B Combo Unknown Completed Marilyn partida Seybold - External Td- Tetanus & Diphtheria Vaccine (age 7+ years) Unknown Completed Brenda Seybol d - External Tdap- (Boostrix, Adacel) Unknown Completed Brenda Seybold - External Tdap- (Boostrix, Adacel) Unknown Completed Brenda Seybold - External Covid-19 Vaccine Moderna (Spikevax), Mrna-lnp, Yannick Protein, Pf Unknown Completed Brenda Seybold - External AFLURIA TRIVALENT PF(0.5mL) Unknown Completed Brenda Seybold - External Hep A/ Hep B Combo Unknown Completed Marilyn partida Seybold - External Td- Tetanus & Diphtheria Vaccine (age 7+ years) Unknown Completed Brenda Seybol d - External Tdap- (Boostrix, Adacel) Unknown Completed Brenda Seybold - External Tdap- (Boostrix, Adacel) [facility] Moderna (Spikevax), Mrna-lnp, Yannick Protein, Pf [facility] AFLURIA TRIVALENT PF(0.5mL) Unknown Completed Brenda ybold - External Hep A/ Hep B Combo Unknown Completed Marilyn partida Seybold - External Td- Tetanus & Diphtheria Vaccine (age 7+ years) Unknown Completed Brenda Albaol d - External Tdap- (Boostrix, Adacel) [facility], Adacel[facility] Moderna (Spikevax), Mrna-lnp, Yannick Protein, Pf [facility] AFLURIA TRIVALENT PF(0.5mL) Unknown Completed Brenda Seybold - External Hep A/ Hep B Combo Unknown Completed Marilyn partida Seybold - External Td- Tetanus & Diphtheria Vaccine (age 7+ years) Unknown Completed Brenda Seybol d - External Tdap- (Boostrix, Adacel) Unknown Completed Brenda Seybold - External Tdap- (Boostrix, Adacel) Unknown Completed Brenda Seybold - External Covid-19 Vaccine Moderna (Spikevax), Mrna-lnp, Yannick Protein, Pf Unknown Completed Brenda Seybold - External Influenza Virus Vaccine, Unspecified Formulation Unknown Completed Brenda Seybold - External AFLURIA TRIVALENT PF(0.5mL) Unknown Completed Brenda Seybold - External Hep A/ Hep B Combo Unknown Completed Marilyn partida Seybold - External Td- Tetanus & Diphtheria Vaccine (age 7+ years) Unknown Completed Brenda Seybol d - External Tdap- (Boostrix, Adacel) Unknown Completed Brenda Seybold - External Tdap- (Boostrix, Adacel) Unknown Completed Brenda Seybold - External Covid-19 Vaccine Moderna (Spikevax), Mrna-lnp, Yannick Protein, Pf Unknown Completed Brenda Seybold - External Influenza Virus Vaccine, Unspecified Formulation Unknown Completed Brenda Seybold - External AFLURIA TRIVALENT PF(0.5mL) Unknown Completed Brenda Seybold - External Hep A/ Hep B Combo Unknown Completed Marilyn partida Seybold - External Td- Tetanus & Diphtheria Vaccine (age 7+ years) Unknown Completed Brenda Seybol d - External Tdap- (Boostrix, Adacel) Unknown Completed Brenda Seybold - External Tdap- (Boostrix, Adacel) Unknown Completed Brenda Seybold - External Covid-19 Vaccine Moderna (Spikevax), Mrna-lnp, Yannick Protein, Pf Unknown Completed Brenda Albaybold - External Influenza Virus Vaccine, Unspecified Formulation Unknown Completed Brenda Albaybold - External AFLURIA TRIVALENT PF(0.5mL) Unknown Completed Brenda Albaybold - External Hep A/ Hep B Combo Unknown Completed Marilyn partida Seybold - External Td- Tetanus & Diphtheria Vaccine (age 7+ years) Unknown Completed Brenda Seybol d - External Tdap- (Boostrix, Adacel) Unknown Completed Brenda Seybold - External Tdap- (Boostrix, Adacel) Unknown Completed Brenda Seybold - External Covid-19 Vaccine Moderna (Spikevax), Mrna-lnp, Yannick Protein, Pf Unknown Completed Brenda Seybold - External Influenza Virus Vaccine, Unspecified Formulation Unknown Completed Brenda Seybold - External AFLURIA TRIVALENT PF(0.5mL) Unknown Completed Brenda Seybold - External Hep A/ Hep B Combo Unknown Completed K elsey Seybold - External Td- Tetanus & Diphtheria Vaccine (age 7+ years) Unknown Completed Brenda Seybol d - External Tdap- (Boostrix, Adacel) Unknown Completed Brenda Seybold - External Tdap- (Boostrix, Adacel) Unknown Completed Brenda Seybold - External Covid-19 Vaccine Moderna (Spikevax), Mrna-lnp, Yannick Protein, Pf Unknown Completed Brenda Seybold - External Influenza Virus Vaccine, Unspecified Formulation Unknown Completed Brenda Seybold - External AFLURIA TRIVALENT PF(0.5mL) Unknown Completed Brenda Seybold - External Hep A/ Hep B Combo Unknown Completed Marilyn partida Seybold - External Td- Tetanus & Diphtheria Vaccine (age 7+ years) Unknown Completed Brenda Seybol d - External Tdap- (Boostrix, Adacel) Unknown Completed Brenda Seybold - External Tdap- (Boostrix, Adacel) Unknown Completed Brenda Seybold - External Covid-19 Vaccine Moderna (Spikevax), Mrna-lnp, Yannick Protein, Pf Unknown Completed Brenda Seybold - External Influenza Virus Vaccine, Unspecified Formulation Unknown Completed Brenda Albaybold - External Influenza, Seasonal, Injectable, Preservative Free Unknown Completed Brenda Vargas bold - External Hep A/ Hep B Combo Unknown Completed Marilyn partida Seybold - External Td- Tetanus & Diphtheria Vaccine (age 7+ years) Unknown Completed Brenda Laureanool d - External AFLURIA TRIVALENT PF(0.5mL) Unknown Completed Brenda Albaybold - External Hep A/ Hep B Combo Unknown Completed Marilyn partida Seybold - External Td- Tetanus & Diphtheria Vaccine (age 7+ years) Unknown Completed Brenda Seybol d - External Tdap- (Boostrix, Adacel) Unknown Completed Brenda Seybold - External Tdap- (Boostrix, Adacel) Unknown Completed Brenda Seybold - External Covid-19 Vaccine Moderna (Spikevax), Mrna-lnp, Yannick Protein, Pf Unknown Completed Brenda Seybold - External Tdap- (Boostrix, Adacel) Unknown Completed Brenda Seybold - External Influenza Virus Vaccine, Unspecified Formulation Unknown Completed Brenda Seybold - External Tdap- (Boostrix, Adacel) Unknown Completed Brenda Samuel - External Influenza, Seasonal, Injectable, Preservative Free Unknown Completed Brenda Vargas bold - External Hep A/ Hep B Combo Unknown Completed Marilyn Samuel - External Td- Tetanus & Diphtheria Vaccine (age 7+ years) Unknown Completed Brenda Laureanool d - External Tdap- (Boostrix, Adacel) Unknown Completed Brenda Samuel - External Tdap- (Boostrix, Adacel) Unknown Completed Brenda Samuel - External Influenza, Seasonal, Injectable, Preservative Free Unknown Completed Brenda Vargas bold - External Hep A/ Hep B Combo Unknown Completed Marilyn Laureanoold - External Td- Tetanus & Diphtheria Vaccine (age 7+ years) Unknown Completed Brenda Laureanool d - External Tdap- (Boostrix, Adacel) Unknown Completed Brenda Samuel - External Tdap- (Boostrix, Adacel) Unknown Completed Brenda Samuel - External Covid-19 Vaccine Moderna (Spikevax), Mrna-lnp, Yannick Protein, Pf Unknown Completed Brenda Samuel - External Vital Signs Vital Name Observation Time Observation Value Comments S ource Systolic blood pressure 2025-02-07 12:57:00 136 mm[Hg] Brenda Brown ld - External Diastolic blood pressure 2025-02-07 12:57:00 70 mm[Hg] Brenda Brown ld - External Heart rate 2025-02-07 12:57:00 63 /min Migue Samuel - External Body temperature 2025-02-07 12:57:00 36.11 Dara Brenda Samuel - External Respiratory rate 2025-02-07 12:57:00 18 /min Brenda Samuel - External Body height 2025-02-07 12:57:00 177.8 cm Sofie martinez Seybold - External Body weight 2025-02-07 12:57:00 100.245 kg Sofie martinez Seybold - External BMI 2025-02-07 12:57:00 31.71 kg/m2 Sofie martinez Seybdustin - External Oxygen saturation in Arterial blood by Pulse oximetry 2025-02-07 12:57:00 97 /min Brenda Brown ld - External Systolic blood pressure 2024-11-08 13:34:00 128 mm[Hg] Brenda Seybo ld - External Diastolic blood pressure 2024-11-08 13:34:00 62 mm[Hg] Brenda Seybo ld - External Heart rate 2024-11-08 13:34:00 61 /min Kelse y Seybold - External Body temperature 2024-11-08 13:34:00 36.5 Dara Brenda Seybold - External Respiratory rate 2024-11-08 13:34:00 16 /min Brenda Seybold - External Body height 2024-11-08 13:34:00 177.8 cm Sofie ey Seybold - External Body weight 2024-11-08 13:34:00 97.523 kg Sofie ey Seybold - External BMI 2024-11-08 13:34:00 30.85 kg/m2 Sofie ey Seybold - External Oxygen saturation in Arterial blood by Pulse oximetry 2024-11-08 13:34:00 97 /min Brenda Seybo ld - External Systolic blood pressure 2024-07-10 14:33:00 126 mm[Hg] Brenda Seybo ld - External Diastolic blood pressure 2024-07-10 14:33:00 64 mm[Hg] Brenda Seybo ld - External Heart rate 2024-07-10 14:33:00 70 /min Handyse y Seybold - External Body temperature 2024-07-10 14:33:00 36.78 Dara Brenda Seybold - External Respiratory rate 2024-07-10 14:33:00 16 /min Brenda Seybold - External Body height 2024-07-10 14:33:00 177.8 cm Sofie ey Seybold - External Body weight 2024-07-10 14:33:00 101.152 kg Sofie ey Seybold - External BMI 2024-07-10 14:33:00 32.00 kg/m2 Sofie ey Seybold - External Oxygen saturation in Arterial blood by Pulse oximetry 2024-07-10 14:33:00 98 /min Brenda Seybo ld - External Systolic blood pressure 2024-03-27 21:00:00 126 mm[Hg] Brenda Seybo ld - External Diastolic blood pressure 2024-03-27 21:00:00 69 mm[Hg] Brenda Seybo ld - External Heart rate 2024-03-27 21:00:00 69 /min Handyse y Seybold - External Body temperature 2024-03-27 21:00:00 36.44 Dara Brenda Seybold - External Respiratory rate 2024-03-27 21:00:00 16 /min Brenda Seybold - External Body height 2024-03-27 21:00:00 177.8 cm Sofie ey Seybold - External Body weight 2024-03-27 21:00:00 102.059 kg Sofie ey Seybold - External BMI 2024-03-27 21:00:00 32.28 kg/m2 Sofie ey Seybold - External Oxygen saturation in Arterial blood by Pulse oximetry 2024-03-27 21:00:00 96 /min Brenda Seybo ld - External Systolic blood pressure 2024-03-21 14:42:00 132 mm[Hg] Brenda Seybo ld - External Diastolic blood pressure 2024-03-21 14:42:00 70 mm[Hg] Brenda Seybo ld - External Heart rate 2024-03-21 14:42:00 77 /min Handyse y Seybold - External Respiratory rate 2024-03-21 14:42:00 16 /min Brenda Seybold - External Body height 2024-03-21 14:42:00 177.8 cm Sofie ey Seybold - External Body weight 2024-03-21 14:42:00 103.42 kg Sofie ey Seybold - External BMI 2024-03-21 14:42:00 32.71 kg/m2 Sofie ey Seybold - External Oxygen saturation in Arterial blood by Pulse oximetry 2024-03-21 14:42:00 100 /min Brenda Seybo ld - External Systolic blood pressure 2023-12-20 16:08:00 132 mm[Hg] Brenda Seybo ld - External Diastolic blood pressure 2023-12-20 16:08:00 87 mm[Hg] Brenda Seybo ld - External Heart rate 2023-12-20 16:08:00 68 /min Handyse y Seybold - External Respiratory rate 2023-12-20 16:08:00 15 /min Brenda Seybold - External Body height 2023-12-20 16:08:00 177.8 cm Sofie ey Seybold - External Body weight 2023-12-20 16:08:00 99.791 kg Sofie ey Seybold - External BMI 2023-12-20 16:08:00 31.57 kg/m2 Sofie ey Seybold - External Oxygen saturation in Arterial blood by Pulse oximetry 2023-12-20 16:08:00 100 /min Brenda Seybo ld - External Systolic blood pressure 2023-11-01 19:34:00 142 mm[Hg] Brenda Seybo ld - External Diastolic blood pressure 2023-11-01 19:34:00 62 mm[Hg] Brenda Seybo ld - External Heart rate 2023-11-01 19:34:00 59 /min Migue y Seybold - External Body temperature 2023-11-01 19:34:00 36.22 Dara Brenda Seybold - External Respiratory rate 2023-11-01 19:34:00 15 /min Brenda Seybold - External Body height 2023-11-01 19:34:00 177.8 cm Sofie ey Seybold - External Body weight 2023-11-01 19:34:00 99.791 kg Sofie ey Seybold - External BMI 2023-11-01 19:34:00 31.57 kg/m2 Sofie ey Seybold - External Encounters Start Date/Time End Date/Time Encounter Type Admission Type Attending [facility] Care Department Encounter ID Source 2022-03-04 09:25:03 Outpatient Javon Stone [facility] [id number] [facility] 2022-03-02 13:44:02 Outpatient Javon Stone [facility] [id number] [facility] 2025-07-20 13:40:00 2025-07-20 13:40:00 Outpatient SHADI SALOMON [id number] Brenda Samuel 2025-05-10 09:00:00 2025-05-10 09:00:00 Outpatient MARIANNA TATUM [id number] Brenda Samuel 2025-05-09 09:00:00 2025-05-09 09:00:00 Outpatient PREZAS, MARIANNA BARRY BRENDA [id number] Brenda Albaybdustin 2025-04-16 00:00:00 2025-04-16 00:00:00 Outpatient PREZAS, MARIANNA BARRY BRENDA [id number] Brenda Albaybdustin 2025-04-16 00:00:00 2025-04-16 00:00:00 Outpatient PREZAS, MARIANNA BARRY BRENDA [id number] [facility] 2025-02-23 08:45:00 2025-02-23 08:45:00 Outpatient ABRANALEXANDRA BRENDA [id number] [facility] 2025-02-13 00:00:00 2025-02-13 00:00:00 Outpatient PREZAS, MARIANNA BARRY BRENDA [id number] [facility] 2025-02-07 08:30:00 2025-02-07 08:30:00 Outpatient BLM467 BRENDA BRENDA [id number] [facility] 2025-02-07 08:00:00 2025-02-07 08:00:00 Outpatient PREZAS, MARIANNA BARRY BRENDA [id number] [facility] 2025-01-23 14:00:00 2025-01-23 14:00:00 Outpatient VU, STEVE BARRY [id number] [facility] 2025-01-19 13:50:00 2025-01-19 13:50:00 Outpatient SHADI SALOMON [id number] [facility] 2025-01-19 13:30:00 2025-01-19 13:30:00 Outpatient TOMOGRAPHY, FBMDC BRENDA BARRY [id number] Brenda Seybold 2025-01-03 00:00:00 2025-01-03 00:00:00 Outpatient PREZAS, MARIANNA BRENDA BRENDA [id number] Brenda Seybold 2024-12-24 00:00:00 2024-12-24 00:00:00 Outpatient PREZAS, MARIANNA BRENDA BARRY [id number] Brenda Seybold 2024-12-22 11:40:00 2024-12-22 11:40:00 Outpatient UDOET, SHADI BRENDA BARRY [id number] Brenda Albadustin 2024-12-01 09:00:00 2024-12-01 09:00:00 Outpatient UDOET, SHADI BRENDA BARRY [id number] [facility] 2024-11-24 11:20:00 2024-11-24 11:20:00 Outpatient UDOETUK, SHADI BRENDA BARRY [id number] [facility] 2024-11-22 00:00:00 2024-11-22 00:00:00 Outpatient PREZAS, MARIANNA BRENDA BARRY [id number] [facility] 2024-11-08 08:45:00 2024-11-08 08:45:00 Outpatient PREZAS, MARIANNA BRENDA BARRY [id number] [facility] 2024-10-11 08:15:00 2024-10-11 08:15:00 Outpatient PREZAS[facility] [id number] [facility] 00:00:00 2024-10-10 00:00:00 Outpatient PREZAS, MARIANNA BRENDA BARRY [id number] [facility] 2024-10-09 09:50:00 2024-10-09 09:50:00 Outpatient LAB90 [facility] [id number] [facility] 2024-09-15 11:00:00 2024-09-15 11:00:00 Outpatient UDOETSHADI KELLER BRENDA BARRY [id number] [facility] 2024-08-25 00:00:00 2024-08-25 00:00:00 Outpatient PREZAS, MARIANNA BRENDA BARRY [id number] [facility] 2024-08-11 13:50:00 2024-08-11 13:50:00 Outpatient UDOETUK, SHADI BRENDA BARRY [id number] [facility] 2024-08-04 14:30:00 2024-08-04 14:30:00 Outpatient UDOETUK, SHADI BRENDA BARRY [id number] [facility] 2024-07-17 08:40:00 2024-07-17 08:40:00 Outpatient UDOETUK, SHADI BRENDA BARRY [id number] Brenda Seybold 2024-07-17 08:30:00 2024-07-17 08:30:00 Outpatient 1, OPTICAL BRENDA BRENDA [id number] Brenda Seybold 2024-07-10 08:45:00 2024-07-10 08:45:00 Outpatient PREZAS, MARIANNA BARRY BRENDA [id number] Brenda Seybold 2024-07-07 09:40:00 2024-07-07 09:40:00 Outpatient LAB90 BRENDA BRENDA [id number] [facility] 2024-05-29 14:30:00 2024-05-29 14:30:00 Outpatient PREZAS, MARIANNA BRENDA BARRY [id number] [facility] 2024-05-09 11:00:00 2024-05-09 11:00:00 Outpatient PREZAS, MARIAN[facility] [id number] [facility] 14:40:00 2024-05-05 14:40:00 Outpatient TOMOGRAPHY, FBMDC BRENDA BRENDA [id number] Brenda Seybold 2024-05-05 14:20:00 2024-05-05 14:20:00 Outpatient UDOETUK, SHADI [facility]DA BARRY [id number] [facility] 2024-04-23 00:00:00 2024-04-23 00:00:00 Outpatient PREZAS, MARIANNA BRENDA BARRY [id number] [facility] 2024-04-14 00:00:00 2024-04-14 00:00:00 Outpatient PREZAS, MARIANNA BRENDA BARRY [id number] Brenda Seybold 2024-04-07 15:50:00 2024-04-07 15:50:00 Outpatient UDOETUK, SHADI BRENDA BARRY [id number] Brenda Seybold 2024-03-27 16:30:00 2024-03-27 16:30:00 Outpatient PREZAS, MARIANNA BRENDA BARRY [id number] Brenda Seybold 2024-03-22 00:00:00 2024-03-22 00:00:00 Outpatient PREZAS, MARIANNA BARRY BRENDA [id number] [facility] 2024-03-21 10:15:00 2024-03-21 10:15:00 Outpatient LAB90 BRENDA BRENDA [id number] Brenda Seybold 2024-03-21 09:45:00 2024-03-21 09:45:00 Outpatient PREZAS, MARIANNA BRENDA BARRY [id number] [facility] 2024-03-10 08:40:00 2024-03-10 08:40:00 Outpatient SHADI SALOMON [facility]ENDA BARRY [id number] [facility] 2024-03-06 11:25:00 2024-03-06 11:25:00 Outpatient LABJessee BRENDA BRENDA [id number] [facility] 2024-02-27 00:00:00 2024-02-27 00:00:00 Outpatient PREZAS, MARIANNA BRENDA BARRY [id number] [facility] 2024-02-22 13:30:00 2024-02-22 13:30:00 Outpatient DANNY VARGAS BRENDA BARRY [id number] [facility] 2024-02-22 13:15:00 2024-02-22 13:15:00 Outpatient 1, SAUL [facility] [id number] [facility] 2024-02-21 00:00:00 2024-02-21 00:00:00 Outpatient DANNY VARGAS [id number] [facility] 2024 00:00:00 2024 00:00:00 Outpatient PREZAS, MARIANNA BARRY [id number] Brenda Seybold 2024-01-26 15:00:00 2024-01-26 15:00:00 Outpatient MARIEL POSEY [id number] Brenda Seybold 2024-01-19 00:00:00 2024-01-19 00:00:00 Outpatient PREZAS, MARIANNA BARRY [id number] Brenda Seybold 2024-01-17 00:00:00 2024-01-17 00:00:00 Outpatient PREZAS, MARIANNA BARRY [id number] Brenda Samuel 2024-01-14 00:00:00 2024-01-14 00:00:00 Outpatient MARIANNA TATUMSEY [id number] Brenda Samuel 2023-12-20 11:15:00 2023-12-20 11:15:00 Outpatient MARIANNA TATUM BRENDA [id number] Brenda Samuel 2023-12-03 08:50:00 2023-12-03 08:50:00 Outpatient TOMOGRAPHY, FBMD BRENDA BRENDA [id number] Brenda Samuel 2023-12-03 08:40:00 2023-12-03 08:40:00 Outpatient MARTHA SHADI BRENDA BARRY [id number] Brenda Samuel 2023-11-03 00:00:00 2023-11-03 00:00:00 Outpatient UDBEATRIZ SHADI BRENDA BARRY [id number] [facility] 2023-11-01 15:15:00 2023-11-01 15:15:00 Outpatient LAB90 BRENDA BARRY [id number] Brenda Samuel 2023-11-01 14:30:00 2023-11-01 14:30:00 Outpatient ANITA VARGAS [id number] Brenda Sridevidustin Notes Date/Time Note Provider Source 2025-02-07 07:57:20 Chief Complaint Patient presents with Diabetes 3 month [facility] 2024-11-08 08:35:54 Chief Complaint Patient presents with Diabetes 3 month follow up Christine Mendoza MA [facility] BrendaJimmie [facility] 2024-07-10 08:39:41 Chief Complaint Patient presents with Follow-up Follow up for DM Carine Stapleton LVN [employer] [facility] 2023-11-01 14:43:56 Chief Complaint Patient presents with Establish Care He has previously seen Dr. Stone as PCP. Last annual was June 2023. Diabetes Referral He needs a referral to Dr. Beltran at [facility] in [place]. Ashley Merritt MA II [facility]
[2025-05-01] MEDS ORDERED: TETRACAINE HCL 0.5% 4ML OPTH ONE (02:50)
[2025-05-01] MEDS ORDERED: FLUORESCEIN SODIUM 1 MG/WRAP ONE (02:59)
[2025-05-01] MEDS ORDERED: Ringers Lactate 1,000 ML IV ONE (03:22)
[2025-05-01] MEDS ORDERED: GENTAMICIN 0.3% OPTH DROP 5ML ONE (03:22)
--- NOTE | 2025-05-01 03:54 | ER ---
Nurse's Notes [facility] Name: Antoine Funes Age: 60 yrs Sex: Male : 1965 Arrival Date: 05/01/2025 Time: 02:34 Bed 19 Private MD: Diagnosis: Injury of conjunctiva and corneal abrasion without foreign body, left eye Presentation: 05/01 02:46 Chief complaint: Patient states: Pt was working under truck and something fell in left br2 eye. Pt c/o pain (stabbing), denies blurred vision. Coronavirus screen: Client denies travel out of the [place] in the last 14 days. Ebola Screen: Patient denies exposure to infectious person. Initial Sepsis Screen: Does the patient meet any 2 criteria? No. Patient's initial sepsis screen is negative. Does the patient have a suspected source of infection? No. Patient's initial sepsis screen is negative. Risk Assessment: Do you want to hurt yourself or someone else? Patient reports no desire to harm self or others. Onset of symptoms was April 30, 2025 at 17:00. 02:46 Method Of Arrival: Ambulatory br2 02:46 Acuity: CALI 3 br2 Triage Assessment: 02:48 General: Appears uncomfortable, Behavior is calm, cooperative. Pain: Complains of pain br2 in left eye Pain currently is 5 out of 10 on a pain scale. Historical: - Allergies: 02:48 No Known Allergies; br2 - PMHx: 02:48 Asthma; Diabetes - NIDDM; High Cholesterol; Hypertension; br2 - PSHx: 02:48 None; br2 - Immunization history:: Adult Immunizations up to date, Last tetanus immunization: < 10 years ago. - Infectious Disease History:: Denies. - Social history:: Smoking status: Patient denies any tobacco usage or history of. Patient uses alcohol, occasionally. Patient/guardian denies using street drugs. Screenin:55 [facility] ED Fall Risk Assessment (Adult) History of falling in the last 3 months, kb4 including since admission No falls in past 3 months (0 pts) Confusion or Disorientation No (0 pts) Intoxicated or Sedated No (0 pts) Impaired Gait No (0 pts) Mobility Assist Device Used No (0 pt) Altered Elimination No (0 pt) Score/Fall Risk Level 0 - 2 = Low Risk. Abuse screen: Denies threats or abuse. Denies injuries from another. Nutritional screening: No deficits noted. Tuberculosis screening: No symptoms or risk factors identified. Assessment: 03:04 General: Appears in no apparent distress. comfortable, Behavior is calm, cooperative. kb4 Neuro: Level of Consciousness is awake, alert, obeys commands, Oriented to person, place, time, situation. Cardiovascular: Patient's skin is warm and dry. Respiratory: Airway is patent Respiratory effort is even, unlabored. GI: No signs and/or symptoms were reported involving the gastrointestinal system. : No signs and/or symptoms were reported regarding the genitourinary system. EENT: No signs and/or symptoms were reported regarding the EENT system. Derm: No signs and/or symptoms reported regarding the dermatologic system. Musculoskeletal: No signs and/or symptoms reported regarding the musculoskeletal system. 03:06 Reassessment: Visual Acuity exam, no snellen chart available: stepped 20ft back kb4 utilized hand motioning..... previous L eye damage (no change to eyesight) ALL 20/20. 03:55 Reassessment: Patient and/or family updated on plan of care and expected duration. Pain kb4 level reassessed. Patient is alert, oriented x 3, equal unlabored respirations, skin warm/dry/pink. Vital Signs: 02:46 BP 161 / 67; Pulse 63; Resp 18; Temp 97.1; Pulse Ox 99% on R/A; Weight 102.06 kg; br2 Height 5 ft. 10 in. ; Pain 5/10; 03:56 BP 153 / 65; Pulse 75; Resp 18; Pulse Ox 100% ; kb4 02:46 Body Mass Index 32.28 (102.06 kg, 177.8 cm) br2 02:46 Pain Scale: Adult br2 ED Course: 02:38 Patient arrived in ED. gm2 02:40 James Ordonez PA-C is PHCP. cp 02:40 James Butler MD is Attending Physician. cp 02:41 Sakina Bishop, YANELI is Primary Nurse. kb4 02:48 Triage completed. br2 02:48 Arm band placed on right wrist. br2 03:53 Juan M Brasher MD is Referral Physician. cp 03:55 Patient has correct armband on for positive identification. Provided Education on: d/c kb4 instructions . 03:55 No provider procedures requiring assistance completed. Patient did not have IV access kb4 during this emergency room visit. Administered Medications: 03:15 Drug: Tetracaine Ophthalmic Drops 0.5 % 1 drops Ophthalmic once Route: Ophthalmic; kb4 Site: left eye; 03:32 Drug: Gentamicin Ophthalmic Drops 0.3 % 1 drops Ophthalmic once Route: Ophthalmic; kb4 Site: left eye; 03:32 Drug: Ringers - Lactated Ringers Solution IV 1000 ml IV at calculated rate bolus; use kb4 to irrigate left eye Route: IV; Rate: calculated rate; Site: Other; Medication: 03:56 VIS not applicable for this client. kb4 Outcome: 03:53 Discharge ordered by . helena 03:55 Discharged to home ambulatory, kb4 03:55 Condition: good 03:55 Discharge instructions given to patient, Instructed on discharge instructions, follow up and referral plans. medication usage, Demonstrated understanding of instructions, follow-up care, medications, Prescriptions given X 2, 03:57 Patient left the ED. kb4 Signatures: James Ordonez, PA-C PA-C Kimberlee Means gm2 Rula Roman RN RN br2 Sakina Bishop RN RN kb4
--- NOTE | 2025-05-01 03:54 | EDPHYS ---
Physician Documentation [facility] Name: Antoine Funes Age: 60 yrs Sex: Male : 1965 Arrival Date: 05/01/2025 Time: 02:34 Bed 19 Private MD: ED Physician James Butler HPI: 05/01 03:00 This 60 yrs old Male presents to ER via Ambulatory with complaints of Foreign Body In cp Eye. 03:00 The patient is experiencing foreign body sensation, pain, to the left eye, patient cp reports he was working underneath vehicle when he felt like something fell into his left eye. patient reports flushing eye with water after incident. 03:00 Onset: The symptoms/episode began/occurred yesterday, at 1700. Duration: the symptoms cp are continuous. Associated signs and symptoms: Pertinent negatives: dizziness, fever, headache, vision changes. Patient does not utilize any form of vision correction. 03:00 Severity of symptoms: in the emergency department the symptoms are unchanged despite cp home interventions. Historical: - Allergies: 02:48 No Known Allergies; br2 - PMHx: 02:48 Asthma; Diabetes - NIDDM; High Cholesterol; Hypertension; br2 - PSHx: 02:48 None; br2 - Immunization history:: Adult Immunizations up to date, Last tetanus immunization: < 10 years ago. - Infectious Disease History:: Denies. - Social history:: Smoking status: Patient denies any tobacco usage or history of. Patient uses alcohol, occasionally. Patient/guardian denies using street drugs. ROS: 03:05 Constitutional: Negative for body aches, chills, fever, poor PO intake, cp 03:05 Eyes: Positive for foreign body sensation, pain, redness, swelling, of the left eye, cp Negative for discharge, matting, 03:05 ENT: Negative for drainage from ear(s), ear pain, sore throat, difficulty swallowing, difficulty handling secretions, 03:05 Cardiovascular: Negative for chest pain, edema, palpitations, 03:05 Respiratory: Negative for cough, shortness of breath, wheezing, 03:05 Abdomen/GI: Negative for abdominal pain, vomiting, diarrhea, constipation, black/tarry stool, rectal bleeding, 03:05 Neuro: Negative for altered mental status, dizziness, headache, numbness, weakness, 03:05 All other systems are negative, Exam: 03:30 Visual Acuity: no vision change reported by patient, cp 03:30 Head/Face: Normocephalic, atraumatic. cp 03:30 Constitutional: The patient appears in no acute distress, alert, awake, non-diaphoretic, non-toxic, well developed, well nourished, 03:30 Eyes: Periorbital structures: appear normal, Pupils: equal, round, and reactive to light and accomodation, Extraocular movements: intact throughout, Conjunctiva: mild redness of left eye. Corneas: abrasion, that is small, on the left, at 2 o'clock, foreign body, is not appreciated, a fluorescein strip employed to appreciate the findings, Sclera: abrasion, of the lateral aspect of conjunctiva of left eye, Anterior chamber: normal, no hyphema, Lids and lashes: mild swelling of left upper lid. Examination of the other eye reveals no obvious gross abnormality, 03:30 ENT: External ear(s): are unremarkable, Nose: is normal, Mouth: Lips: moist, Oral mucosa: moist, Posterior pharynx: Airway: no evidence of obstruction, patent, 03:30 Chest/axilla: Inspection: normal, cp 03:30 Cardiovascular: Rate: normal, Rhythm: regular, cp 03:30 Respiratory: the patient does not display signs of respiratory distress, Respirations: normal, no use of accessory muscles, no retractions, labored breathing, is not present, Breath sounds: are clear throughout, no decreased breath sounds, no stridor, no wheezing, 03:30 Abdomen/GI: Inspection: abdomen appears normal, 03:30 Neuro: Orientation: to person, place \T\ time. Mentation: is normal, Vital Signs: 02:46 BP 161 / 67; Pulse 63; Resp 18; Temp 97.1; Pulse Ox 99% on R/A; Weight 102.06 kg; br2 Height 5 ft. 10 in. ; Pain 5/10; 03:56 BP 153 / 65; Pulse 75; Resp 18; Pulse Ox 100% ; kb4 02:46 Body Mass Index 32.28 (102.06 kg, 177.8 cm) br2 02:46 Pain Scale: Adult br2 MDM: 02:40 Medical Screening Exam initiated cp 03:00 Differential diagnosis: Corneal abrasion of left eye. Foreign body in left eye. cp Chemical conjunctivitis in left eye. Infectious conjunctivitis in left eye. 03:52 Data reviewed: vital signs, nurses notes, and as a result, I will discharge patient. 03:52 I considered the following discharge prescriptions or medication management in the emergency department Medications were administered in the Emergency Department. See MAR. Counseling: I had a detailed discussion with the patient and/or guardian regarding the historical points, exam findings, and any diagnostic results supporting the discharge/admit diagnosis, the need for outpatient follow up, an opthalmologist, to return to the emergency department if symptoms worsen or persist or if there are any questions or concerns that arise at home. Response to treatment: the patient's symptoms have mildly improved after treatment, and as a result, I will discharge patient. 05/01 02:46 Order name: Eye Tray; Complete Time: 03:01 cp 05/01 02:46 Order name: Fluoresene Opth strip; Complete Time: 03:01 cp 05/01 02:46 Order name: Visual Acuity; Complete Time: 03:01 cp Administered Medications: 03:15 Drug: Tetracaine Ophthalmic Drops 0.5 % 1 drops Ophthalmic once Route: Ophthalmic; kb4 Site: left eye; 03:32 Drug: Gentamicin Ophthalmic Drops 0.3 % 1 drops Ophthalmic once Route: Ophthalmic; kb4 Site: left eye; 03:32 Drug: Ringers - Lactated Ringers Solution IV 1000 ml IV at calculated rate bolus; use kb4 to irrigate left eye Route: IV; Rate: calculated rate; Site: Other; Disposition: 06:07 Chart complete. cp Disposition Summary: 05/01/25 03:53 Discharge Ordered Notes: Location: Home cp Problem: new cp Symptoms: have improved cp Condition: Stable cp Diagnosis - Injury of conjunctiva and corneal abrasion without foreign body, left eye cp Followup: cp - With: Juan M Brasher MD - When: 1 - 2 days - Reason: Recheck today's complaints Discharge Instructions: - Discharge Summary Sheet cp - Corneal Abrasion cp Forms: - Medication Reconciliation Form cp - Antibiotic Education cp - Prescription Opioid Use cp - Patient Portal Instructions cp - Leadership Thank You Letter cp Prescriptions: - Anaprox DS 550 mg Oral Tablet - take 1 tablet ORAL route every 12 hours As needed; 20 tablet; Refills: 0, cp Product Selection Permitted - Gentamicin 0.3 % Ophthalmic drops - instill 1 drop OPHTHALMIC route every 4 hours for 7 days; 1 unit; Refills: 0, cp Product Selection Permitted Addendum: 05/16/2025 08:07 Co-signature as Attending Physician, James Butler MD I agree with the assessment and c anderson plan of care. Signatures: James Butler MD MD cha Page, Corey, PA-C PA-C Rula Issa RN RN br2 Sakina Bishop RN RN kb4 Corrections: (The following items were deleted from the chart) 05/01 05:03 03:00 The patient is experiencing foreign body sensation, pain, to the left eye, cp cp
[2025-05-01 04:34] VITALS: BP 153/65; TEMP 97.1; O2SAT 100
== END 2025-05-01 03:57 | disposition home or self-care (01) ==
LOC: ER 02:34
DX: S05.02XA Injury of conjunctiva and corneal abrasion without foreign body, left eye, initial encounter (principal); E11.9 Type 2 diabetes mellitus without complications; I10 Essential (primary) hypertension; J45.909 Unspecified asthma, uncomplicated
CPT/HCPCS: 96374; 99284; J7120